=== PATIENT | male | born 1970 | race Caucasian/White ===

== ENCOUNTER 2016-11-24 21:53 | Emergency (ER) | payer MEDICAID ==
--- NOTE | 2016-11-24 21:58 | ERNOTE ---
Chest Pain/Cardiac HPI Time Seen by Provider: 11/24/16 21:53 Source: patient Exam Limitations: no limitations Allergies/Adverse Reactions: Allergies ragweed pollen Allergy (Verified 11/24/16 21:56) Home Medications: HOME MEDICATIONS NK [No Home Medication] 11/24/16 [Last Taken Unknown] Narrative: Chest tightness for 2-3 days. Difficulty getting a deep breath. Smokes 1/2 pack daily. He decided to come in when he noted the pain is running down his left arm. Pain at a 4/10. Timing: intermittent Severity/Quality: moderate, pressure, tightness Location: substernal Chest Pain Radiation: arms Activities at Onset: activity Modifying Factors - Improves: Present: other - Duoneb/Solu-medrol Modifying Factors - Worsens: Present: nothing Nitro Today/Relief: no nitro taken today Aspirin Treatment Today: no aspirin today Associated Symptoms: Present: shortness of breath Prior Chest Pain/Cardiac Workup: Reports: no prior cardiac workup Review of Systems - Review of Systems Constitutional: Absent: recent illness, fever, chills, diaphoresis, weakness EYE: Present: no symptoms reported ENT: Absent: ear pain, sore throat Respiratory: Present: shortness of breath. Absent: cough Cardiology: Present: chest pain. Absent: palpitations Gastrointestinal/Abdominal: Absent: nausea, vomiting, diarrhea, abdominal pain Genitourinary: Present: no symptoms reported Musculoskeletal: Absent: back pain, muscle pain, muscle stiffness, neck pain Skin: Present: no symptoms reported Neurological: Present: no symptoms reported Endocrine: Present: no symptoms reported Hematologic/Lymphatic: Present: no symptoms reported Psych: Present: no symptoms reported - Patient's Past Medical History Patient History - Medical: No pertinent hx Patient History - Cardiac/Respiratory: No pertinent hx Patient History - Cancer: No Hx of Cancer Patient History - Surgical Procedures: No surgical history Patient History - Other: None - Social History Living Situations: home Psych History: No pertinent hx Smoking Status: Current every day smoker Cigarettes Packs Per Day: 0.5 Have you smoked in the past 12 months: Yes Drug Use: none Physical Exam - Physical Exam General Appearance: Present: wd/wn, alert, no apparent distress Head Exam: Present: normal inspection, no evidence of injury Eye Exam: Normal inspection: bilateral, PERRL: bilateral, EOMI: bilateral Ears, Nose, Throat: Present: normal ENT inspection, normal pharynx Neck: Present: normal inspection, nontender Respiratory: Present: no respiratory distress, normal breath sounds, no accessory muscle use, chest nontender, lungs clear Cardiovascular/Chest: Present: regular rate, rhythm, no murmur, normal peripheral pulses Gastrointestinal/Abdominal: Present: normal bowel sounds, nontender, nondistended, soft Back Exam: Present: normal inspection, normal range of motion Extremity Exam: Present: normal inspection, non-tender, normal range of motion, no edema Neurological Exam: Present: alert, oriented, normal mood/affect, no motor/ sensory deficits Skin Exam: Present: normal color, warm/dry ED Progress - Results and Orders Patient's Lab Results:: I have reviewed the patient's lab results. Results and Orders: Laboratory Tests 11/24/16 11/24/16 11/24/16 22:10 22:10 23:44 WBC 12.6 H RBC 4.79 Hgb 14.7 Hct 42.6 MCV 88.9 MCH 30.7 MCHC 34.5 RDW 13.2 Plt Count 294 MPV 9.3 Immature Gran % (Auto) [employer] Immature Gran # (Auto) [employer] Neutrophils % [employer] Neutrophils % (Manual) 42 Lymphocytes % [employer] Lymphocytes % (Manual) 33 Monocytes % [employer]endant Monocytes % (Manual) 19 H Eosinophils % [employer] Eosinophils % (Manual) 5 H Basophils % [employer] Basophils % (Manual) 1 Nucleated RBC % [employer] Attendant Neutrophils # [employer] Attendant Neutrophils # (Manual) 5.3 Lymphocytes # [employer] Attendant Lymphocytes # (Manual) 4.2 H Monocytes # [employer]endant Monocytes # (Manual) 2.4 H Eosinophils # [employer] Eosinophils # (Manual) 0.6 Basophils # (Manual) 0.1 Absolute Basophils [employer] Toxic Granulation 1+ Platelet Estimate Normal Giant Platelets 1+ RBC Morphology Normal Sodium 139 Plasma Sodium 139 Potassium 3.3 L Chloride 102 Carbon Dioxide 27.6 Anion Gap 12.7 BUN 12 Creatinine 1.03 Est GFR (Non-Af Amer) 83 BUN/Creatinine Ratio 11.7 Random Glucose 125 H Calcium 8.9 Calcium Adj for Albumin 8.9 Total Bilirubin 0.3 AST 14 ALT 26 Alkaline Phosphatase 56 Troponin I Less than 0.017 Total Protein 7.4 Albumin 3.6 Urine Color Yellow Urine Appearance Clear Urine pH 6.5 Ur Specific [place] <=1.005 Urine Protein Negative Urine Glucose (UA) Negative Urine Ketones Negative Urine Blood Negative Urine Nitrate Negative Urine Bilirubin Negative Urine Urobilinogen Normal Ur Leukocyte Esterase Negative Urine RBC None seen Urine WBC None seen Ur Epithelial Cells None seen Urine Bacteria Trace Urine Culture Comments No culture indicated Urine Opiates Screen Barbiturate Screen Ur Phencyclidine Scrn Urine Amphetamine U Benzodiazepines Scrn Urine Cocaine Screen Urine Marijuana (THC) 11/24/16 11/25/16 11/25/16 23:44 00:42 02:42 WBC RBC Hgb Hct MCV MCH MCHC RDW Plt Count MPV Immature Gran % (Auto) Immature Gran # (Auto) Neutrophils % Neutrophils % (Manual) Lymphocytes % Lymphocytes % (Manual) Monocytes % Monocytes % (Manual) Eosinophils % Eosinophils % (Manual) Basophils % Basophils % (Manual) Nucleated RBC % Neutrophils # Neutrophils # (Manual) Lymphocytes # Lymphocytes # (Manual) Monocytes # Monocytes # (Manual) Eosinophils # Eosinophils # (Manual) Basophils # (Manual) Absolute Basophils Toxic Granulation Platelet Estimate Giant Platelets RBC Morphology Sodium Plasma Sodium Potassium Chloride Carbon Dioxide Anion Gap BUN Creatinine Est GFR (Non-Af Amer) BUN/Creatinine Ratio Random Glucose Calcium Calcium Adj for Albumin Total Bilirubin AST ALT Alkaline Phosphatase Troponin I 0.093 0.243 H* Total Protein Albumin Urine Color Urine Appearance Urine pH Ur Specific [place] Urine Protein Urine Glucose (UA) Urine Ketones Urine Blood Urine Nitrate Urine Bilirubin Urine Urobilinogen Ur Leukocyte Esterase Urine RBC Urine WBC Ur Epithelial Cells Urine Bacteria Urine Culture Comments Urine Opiates Screen Negative Barbiturate Screen Negative Ur Phencyclidine Scrn Negative Urine Amphetamine Negative U Benzodiazepines Scrn Negative Urine Cocaine Screen Negative Urine Marijuana (THC) Negative - Vital Signs Patient's Vital Signs:: I have reviewed the patient's vital signs. - EKG EKG: NSR, other - Moderate intraventricular conduction delay EKG read: Interp. by me - X-Ray X-Ray #1 X-Ray: chest Interpretation: Interp. by me X-ray Comments: No cardiomegaly, no infiltrates, no bony abnormalities - Progress/Reassessment Progress:: Improved Progress Note-Subjective: 11/25/16 03:57 Patient has been pain free since the first hour here. He has rested comfortably. I discussed the lab results and the pending transfer to [facility] in [place], he verbalized understanding. I spoke with Dr. Naseem Segura at [facility] , the ED physician berto. We discussed the patient's presentation, labs, medications used, EKG. He requested a nitroglycerin drip, which I have ordered. EMS to be by shortly to transport the patient. Departure Clinical Impression: NSTEMI (non-ST elevated myocardial infarction), Shortness of breath at rest - Departure Disposition: [facility] Condition: Good
[2016-11-24] MEDS ORDERED: ALBUTEROL SULFATE/IPRATROPIUM 3 ML NEBU IH ONE ×2 (21:59→22:01)
[2016-11-24] MEDS ORDERED: ASPIRIN 81 MG TAB.CHEW PO ONE (21:59)
[2016-11-24] MEDS ORDERED: ASPIRIN 81 MG TAB.CHEW ONE (22:01)
[2016-11-24] MEDS ORDERED: METHYLPREDNISOLONE SOD SUCC/PF 125 MG/2 ML VIAL IV ONE (22:13)
[2016-11-24] MEDS ORDERED: METHYLPREDNISOLONE SOD SUCC/PF 125 MG/2 ML VIAL ONE (22:14)
[2016-11-24 22:18] LABS: Hematocrit 42.6 % (42.0-52.0); Hemoglobin 14.7 gm/dL (13.5-18.0); Mean Cell Volume 88.9 fl (78-100); Mean Corpuscular Hemoglobin 30.7 pg (27-31); Mean Corpuscular Hgb Conc 34.5 g/dl (32-36); Mean Platelet Volume 9.3 fl (6.0-9.5); Platelet Count 294 K/mm3 (150-450); Red Blood Count 4.79 M/mm3 (4.7-6.0); Red Cell Distribution Width 13.2 % (11.5-14.0); White Blood Count 12.6 K/mm3 (4.0-10.5)
[2016-11-24 22:19] LABS: Total Cells Counted 100
[2016-11-24 22:35] LABS: ALT 26 U/L (19-67); AST 14 U/L (0-48); Albumin * 3.6 gm/dl (3.4-5.0); Alkaline Phosphatase * 56 U/L (50-170); Anion Gap 12.7 mmol/L (6.8-13.8); BUN/Creatinine Ratio 11.7 (9.0-21.6); Bilirubin, Total 0.3 mg/dL (0.0-1.1); Blood Urea Nitrogen 12 mg/dL (6-23); Ca. Corrected For Albumin 8.9 mg/dL (8.4-10.2); Calcium * 8.9 mg/dL (7.9-10.9); Carbon Dioxide 27.6 mmol/L (24-32.6); Chloride 102 mmol/L (97-106); Glucose * 125 mg/dL (70-110); Potassium 3.3 mmol/L (3.4-4.6); Sodium 139 mmol/L (132-142); Total Protein 7.4 gm/dL (6.2-8.2)
[2016-11-24 22:36] LABS: Troponin I Less than 0.017 ng/ml (0.00-0.10)
[2016-11-24 22:49] LABS: Basophil 1 % (0-1); Eosinophil 5 % (0-3); Lymphocyte 33 % (20-51); Monocyte 19 % (0-9); Neutrophil 42 % (42-75); Neutrophil # 5.3 K/mm3 (1.3-6.0)
[2016-11-24 22:50] LABS: Giant Platelets 1+; Platelet Estimate Normal (NORMAL); RBC Morphology Normal (NORMAL); Toxic Granulation 1+
[2016-11-24] MEDS ORDERED: AZITHROMYCIN 250 MG TABLET PO ONE (23:22)
[2016-11-24] MEDS ORDERED: AZITHROMYCIN 250 MG TABLET ONE (23:28)
[2016-11-25 00:10] LABS: Urine Bilirubin Negative (NEGATIVE); Urine Blood Negative /ul (NEGATIVE); Urine Ketone Negative (NEGATIVE); Urine Nitrite Negative (NEGATIVE); Urine Protein Negative (NEGATIVE); Urine Specific Gravity <=1.005 SP.GR. (1.005-1.030); Urine Urobilinogen Normal (NORMAL); Urine pH 6.5 pH (5.0-7.0)
[2016-11-25 00:23] LABS: Cocaine Ur Negative (NEGATIVE); Urine Barbiturate Negative (NEGATIVE); Urine Benzodiazepines Negative (NEGATIVE); Urine Opiates Negative (NEGATIVE); Urine PCP Negative (NEGATIVE); Urine THC Negative (NEGATIVE)
[2016-11-25 00:27] LABS: Urine Appearance Clear; Urine Bacteria TRACE; Urine Color Yellow; Urine RBC None Seen /hpf (0-5); Urine WBC None Seen /hpf (0-5)
[2016-11-25] MEDS ORDERED: NITROGLYCERIN IN 5 % DEXTROSE 50 MG/250 ML INFUS..BTL IV PRN (04:00)
[2016-11-25] MEDS ORDERED: NORMAL SALINE 1,000 ML IV ONE (04:02)
[2016-11-25 04:12] VITALS: BP 174/94
== END 2016-11-25 04:12 | disposition short-term general hospital (02) ==
LOC: ER 21:53
DX: I21.4 Non-ST elevation (NSTEMI) myocardial infarction (principal)